=== PATIENT | female | born 1985 | race African-American/Black ===

== ENCOUNTER 2016-11-30 04:44 | Inpatient (IN) | payer MEDICAID, OTHER ==
[~2016-11-30] VITALS: Ht 172.7 cm; Wt 102.5 kg
[2016-11-30] MEDS ORDERED: PNV1TABL76 PO (05:07)
[2016-11-30] MEDS ORDERED: IRON-1 PO (05:07)
[2016-11-30] MEDS ORDERED: DEXT 5%/LR + PITOCIN 20UNITS/L 1,000 ML IV SCH (05:14)
[2016-11-30] MEDS ORDERED: LACTATED RINGERS 1,000 ML IV SCH (05:14)
[2016-11-30] MEDS ORDERED: NALOXONE HCL 0.4 MG/ML 1ML VIAL IM PRN (05:15)
[2016-11-30] MEDS ORDERED: METHYLERGONOVINE MALEATE 0.2 MG/ML IM PRN (05:15)
[2016-11-30] MEDS ORDERED: CARBOPROST TROMETHAMINE 250 MCG/ML AMPUL IM PRN (05:15)
[2016-11-30 06:15] LABS: BASOPHILS % 0.5 % (0.0-2.0); EOSINOPHILS % 0.5 % (0.0-5.0); HEMATOCRIT. 35.8 % (36.0-48.0); LYMPHOCYTES % 27.7 % (20.0-50.0); MEAN CORPUSCULAR HEMOGLOBIN 31.2 pg (28.0-32.0); MEAN PLATELET VOLUME 9.3 fl (7.4-10.4); MONOCYTES % 9.1 % (2.0-8.0); NEUTROPHILS % 62.2 % (40.0-76.0); PLATELET 166 x1000/uL (130-400); RED BLOOD CELL COUNT 3.85 mill/uL (4.2-5.4); RED CELL DISTRIBUTION WIDTH 15.7 % (11.6-14.6)
[2016-11-30 06:19] LABS: PARTIAL THROMBOPLASTIN TIME 28.4 sec (23.4-31.0); PROTHROMBIN TIME 10.1 sec (9.4-11.6)
[2016-11-30 06:21] LABS: CLARITY URINE CLEAR (CLEAR); COLOR URINE YELLOW (YELLOW); GLUCOSE URINE NEGATIVE (NEGATIVE); KETONES URINE 2+ (NEGATIVE); LEUKOCYTE ESTERASE URINE NEGATIVE (NEGATIVE); NITRITE URINE NEGATIVE (NEGATIVE); OCCULT BLOOD URINE 1+ (NEGATIVE); PH URINE 6.5 (4.5-8.0); PROTEIN URINE TRACE (NEGATIVE); SPECIFIC GRAVITY URINE 1.023 (1.005-1.030)
[2016-11-30] MEDS ORDERED: MORPHINE SULFATE/PF 1MG/ML 10ML AMP ONE (06:24)
[2016-11-30] MEDS ORDERED: OXYTOCIN 10 UNITS/ML 1ML ONE (06:25)
[2016-11-30] MEDS ORDERED: DEXAMETHASONE 4MG/ML 1ML VIAL ONE (06:25)
[2016-11-30] MEDS ORDERED: ONDANSETRON HCL 4MG/2ML VIAL ONE (06:25)
[2016-11-30] MEDS ORDERED: PHENYLEPHRINE HCL 10 MG/ML 1ML (IV VIAL) IV ONE (06:25)
[2016-11-30] MEDS ORDERED: MIDAZOLAM HCL 2 MG/2 ML VIAL ONE (06:25)
[2016-11-30] MEDS ORDERED: CEFAZOLIN 2000MG PREMIX 100 ML IV ONE (06:25)
[2016-11-30] MEDS ORDERED: EPHEDRINE SULFATE 50MG/ML VIAL ONE (06:25)
[2016-11-30 07:09] LABS: *AMPHETAMINES SCREEN URINE NEGATIVE (NEGATIVE); *BARBITURATES SCREEN URINE NEGATIVE (NEGATIVE); *BENZODIAZEPINES SCREEN URINE NEGATIVE (NEGATIVE); *COCAINE SCREEN URINE NEGATIVE (NEGATIVE); CANNABINOID URINE SCREEN NEGATIVE (NEGATIVE); METHADONE URINE SCREEN NEGATIVE (NEGATIVE); OPIATES URINE SCREEN NEGATIVE (NEGATIVE); PHENCYCLIDINE URINE SCREEN NEGATIVE (NEGATIVE)
[2016-11-30 07:12] LABS: HEPATITIS B SURFACE ANTIGEN NEGATIVE
[2016-11-30] MEDS ORDERED: BISACODYL 10MG SUPP PR PRN (08:45)
[2016-11-30] MEDS ORDERED: RHO(D) IMMUNE GLOBULIN 300 MCG/SYR IM PRN (08:45)
[2016-11-30] MEDS ORDERED: HYDROMORPHONE HCL/PF 2MG/ML CPJ IM PRN (08:45)
[2016-11-30] MEDS ORDERED: IBUPROFEN 400MG TABLET PO PRN (08:45)
[2016-11-30] MEDS ORDERED: ACETAMINOPHEN WITH CODEINE 300/30MG TABLET PO PRN (08:45)
[2016-11-30] MEDS ORDERED: NALOXONE HCL 0.4 MG/ML 1ML VIAL IV PRN (09:45)
[2016-11-30] MEDS ORDERED: DIPHENHYDRAMINE 50MG/ML VIAL IV PRN (09:45)
[2016-11-30] MEDS ORDERED: ONDANSETRON HCL 4MG/2ML VIAL IV PRN (09:45)
[2016-11-30] MEDS ORDERED: SODIUM CHLORIDE 0.9% 10ML VIAL ONE (10:40)
[2016-11-30] MEDS ORDERED: CEFAZOLIN SODIUM 1000MG/VIAL ONE (10:40)
[2016-11-30 11:25] VITALS: BP 122/71
[2016-11-30] MEDS: KETOROLAC 30MG/ML VIAL IV SCH ×2 (11:25→18:00)
[2016-11-30 11:55] VITALS: BP 124/65
[2016-11-30 12:25] VITALS: BP 105/59
[2016-11-30] MEDS ORDERED: METHYLERGONOVINE MALEATE 0.2 MG/ML ONE (14:02)
[2016-11-30] MEDS: DEXT 5%/LR + PITOCIN 20UNITS/L 1,000 ML IV SCH (14:10)
[2016-11-30 15:40] VITALS: BP 103/58
[2016-11-30 20:00] VITALS: BP 104/47
[2016-12-01] VITALS: BP 134/48
[2016-12-01] MEDS: KETOROLAC 30MG/ML VIAL IV SCH (00:02)
[2016-12-01] MEDS: DEXT 5%/LR + PITOCIN 20UNITS/L 1,000 ML IV SCH (01:24)
[2016-12-01 06:00] VITALS: BP 120/51
[2016-12-01] MEDS: IBUPROFEN 800MG TABLET PO PRN (06:11)
[2016-12-01 06:55] LABS: BASOPHILS % 0.4 % (0.0-2.0); EOSINOPHILS % 0.5 % (0.0-5.0); HEMATOCRIT. 34.9 % (36.0-48.0); HEMOGLOBIN. 11.7 g/dL (12.0-16.0); MEAN CORPUSCULAR HEMOGLOBIN 31.2 pg (28.0-32.0); MEAN CORPUSCULAR VOLUME 93.4 fL (81.0-99.0); MEAN PLATELET VOLUME 9.1 fl (7.4-10.4); MONOCYTES % 9.5 % (2.0-8.0); NEUTROPHILS % 63.6 % (40.0-76.0); PLATELET 174 x1000/uL (130-400); RED BLOOD CELL COUNT 3.74 mill/uL (4.2-5.4); RED CELL DISTRIBUTION WIDTH 15.7 % (11.6-14.6)
[2016-12-01 08:00] VITALS: BP 99/60
[2016-12-01] MEDS: HYDROCODONE/ACETAMINOPHEN 5/325MG TABLET PO PRN ×2 (10:05→17:45)
[2016-12-01 16:25] VITALS: BP 104/59
[2016-12-01 20:00] VITALS: BP 104/57
[2016-12-02] MEDS: HYDROCODONE/ACETAMINOPHEN 5/325MG TABLET PO PRN ×2 (01:19→15:58)
[2016-12-02 07:30] VITALS: BP 115/73
[2016-12-02 16:12] VITALS: BP 116/76
[2016-12-02 20:00] VITALS: BP 109/73
[2016-12-02] MEDS: IBUPROFEN 800MG TABLET PO PRN (22:11)
[2016-12-03 05:30] VITALS: BP 107/71
[2016-12-03 06:00] VITALS: BP 111/71
[2016-12-03 08:20] VITALS: BP 120/77
[2016-12-03 08:38] VITALS: BP 120/77
[2016-12-03] MEDS: IBUPROFEN 800MG TABLET PO PRN (08:38)
== END 2016-12-03 14:00 | disposition home or self-care (01) | DRG 540 ==
LOC: L&D 04:44 → OBSVTOIN 04:44 → 7EST PP/OB 11:25
PROVIDERS: ADMIT Obstetrics & Gynecology; ATTEND Obstetrics & Gynecology
PROC: 10D00Z1 Extraction of Products of Conception, Low, Open Approach (ICD-10-PCS; principal; 2016-11-30 07:37)
DX: O34.211 Maternal care for low transverse scar from previous cesarean delivery (principal); O69.1XX0 Labor and delivery complicated by cord around neck, with compression, not applicable or unspecified; Z37.0 Single live birth; Z80.3 Family history of malignant neoplasm of breast; Z82.49 Family history of ischemic heart disease and other diseases of the circulatory system; Z3A.39 39 weeks gestation of pregnancy; Z79.899 Other long term (current) drug therapy; Z30.2 Encounter for sterilization
CPT/HCPCS: 36415; 80305; 81001; 85025; 85610; 85730; 86592; 86703; 86762; 86850; 86900; 86920; 87340; 88307; A4216; G0378; J0171; J0690; J1100; J1885; J2210; J2250; J2274; J2370; J2405; J2590; J7120; A4315

== ENCOUNTER → 2019-05-07 | Outpatient (CLI) | payer BC ==
[2019-05-07 15:22] LABS: BASOPHILS % 0.6 % (0.0-2.0); CLARITY URINE CLEAR (CLEAR); COLOR URINE YELLOW (YELLOW); EOSINOPHILS % 1.1 % (0.0-5.0); HEMATOCRIT. 33.4 % (36.0-48.0); HEMOGLOBIN. 11.2 g/dL (12.0-16.0); KETONES URINE NEGATIVE (NEGATIVE); LEUKOCYTE ESTERASE URINE NEGATIVE (NEGATIVE); LYMPHOCYTES % 47.2 % (20.0-50.0); MEAN CORPUSCULAR HEMOGLOBIN 31.2 pg (28.0-32.0); MEAN PLATELET VOLUME 9.2 fl (7.4-10.4); MONOCYTES % 9.1 % (2.0-8.0); NITRITE URINE NEGATIVE (NEGATIVE); OCCULT BLOOD URINE NEGATIVE (NEGATIVE); PH URINE 5.5 (4.5-8.0); PLATELET 157 x1000/uL (130-400); PROTEIN URINE NEGATIVE (NEGATIVE); RED BLOOD CELL COUNT 3.59 mill/uL (4.2-5.4); RED CELL DISTRIBUTION WIDTH 14.3 % (11.6-14.6); SPECIFIC GRAVITY URINE 1.035 (1.005-1.030); UROBILINOGEN URINE 0.2 E.U./dL (0.2-1.0)
[2019-05-07 15:27] LABS: CHLORIDE 109 mEq/L (98-107)
[2019-05-07 15:34] LABS: LDL CHOLESTEROL 89 mg/dL (5-100)
[2019-05-07 15:36] LABS: HDL CHOLESTEROL 59 mg/dL (40-59); T4 FREE 0.88 ng/dL (0.76-1.46)
== END | disposition home or self-care (01) ==
LOC: LAB 14:45
PROVIDERS: ATTEND Internal Medicine
DX: R76.11 Nonspecific reaction to tuberculin skin test without active tuberculosis (principal)
CPT/HCPCS: 36415; 71045; 80053; 80061; 80076; 81003; 82248; 83036; 84439; 84443; 85025